=== PATIENT | male | born 1980 | race Caucasian/White ===

== ENCOUNTER 2022-01-09 16:27 | Emergency (ER) | payer SELFPAY ==
[~2022-01-09] VITALS: Ht 157 cm; Wt 68.0 kg
--- NOTE | 2022-01-09 16:38 | ED Psychosocial ---
General Chief Complaint: Psych/Social Disorder Stated Complaint: PSYCH EVAL Source: patient Exam Limitations: no limitations History of Present Illness Date Seen by Provider: Jan 09, 2022 Time Seen by Provider: 16:35 Initial Comments Patient is a 41-year-old male brought to ED by EMS for psych evaluation. Patient states few hours ago he smoked a joint. He is unclear if the joint was laced with some type of chemical or foreign substance. He states he started feeling differently. He states over the past few days he has been having thoughts of wanting to be closer to the [employer]. He is requesting help in evaluation. History of schizophrenia that he currently uses marijuana for. History of methamphetamine use. Denies any alcohol use. Currently homeless. Not asking for inpatient but asking for help and further evaluation at this time . Denies chest pain, Aditya pain, fever, vomiting, suicidal homicidal thoughts, headache, active hallucinations. Allergies and Home Medications Patient Home Medication List Home Medication List Reviewed: Yes Review of Systems Constitutional: No chills, No diaphoresis EENTM: No hearing loss, No ear pain, No blurred vision, No double vision Respiratory: No cough, No dyspnea on exertion Cardiovascular: No chest pain, No edema, No Hx of Intervention Genitourinary: No decreased output, No discharge Musculoskeletal: No see HPI, No back pain Skin: No change in color Psychiatric/Neurological: Denies Anxiety, Denies Depressed All Other Systems Reviewed Negative Unless Noted: Yes Physical Exam Vital Signs - First Documented 01/09/22 16:28 Temp 36.4 Pulse 106 Resp 20 B/P (MAP) 120/75 (90) Pulse Ox 99 O2 Delivery Room Air Capillary Refill : Height, Weight, BMI Height: '" Weight: lbs. oz. kg; BMI Method: General Appearance: WD/WN, no apparent distress HEENT: PERRL/EOMI, normal ENT inspection, TMs normal, pharynx normal Neck: non-tender, full range of motion, supple, normal inspection Respiratory: chest non-tender, lungs clear, normal breath sounds Cardiovascular: regular rate, rhythm, no edema, no gallop, no JVD Gastrointestinal: normal bowel sounds, non tender, soft, no organomegaly Extremities: normal range of motion, non-tender, normal inspection Neurologic/Psychiatric: rodeo clown II-XII nml as tested, no motor/sensory deficits, alert, normal mood/affect, oriented x 3 Behavior/Eye Contact: cooperative, good eye contact, normal speech Thoughts/Hallucinations: No auditory hallucinations, No tactile hallucinations, No visual hallucinations Skin: normal color, warm/dry Progress/Results/Core Measures Results/Orders Lab Results Laboratory Tests Test 01/09/22 16:39 Range/Units White Blood Count 13.3 H 4.3-11.0 10^3/uL Red Blood Count 4.68 4.30-5.52 10^6/uL Hemoglobin 13.6 13.3-17.7 g/dL Hematocrit 41 40-54 % Mean Corpuscular Volume 88 80-99 fL Mean Corpuscular Hemoglobin 29 25-34 pg Mean Corpuscular Hemoglobin Concent 33 32-36 g/dL Red Cell Distribution Width 14.2 10.0-14.5 % Platelet Count 387 130-400 10^3/uL Mean Platelet Volume 9.9 9.0-12.2 fL Immature Granulocyte % (Auto) 0 % Neutrophils (%) (Auto) 80 H 42-75 % Lymphocytes (%) (Auto) 14 12-44 % Monocytes (%) (Auto) 5 0-12 % Eosinophils (%) (Auto) 0 0-10 % Basophils (%) (Auto) 1 0-10 % Neutrophils # (Auto) 10.7 H 1.8-7.8 X 10^3 Lymphocytes # (Auto) 1.9 1.0-4.0 X 10^3 Monocytes # (Auto) 0.6 0.0-1.0 X 10^3 Eosinophils # (Auto) 0.1 0.0-0.3 10^3/uL Basophils # (Auto) 0.1 0.0-0.1 10^3/uL Immature Granulocyte # (Auto) 0.0 0.0-0.1 10^3/uL Sodium Level 140 135-145 MMOL/L Potassium Level 4.3 3.6-5.0 MMOL/L Chloride Level 103 98-107 MMOL/L Carbon Dioxide Level 22 21-32 MMOL/L Anion Gap 15 H 5-14 MMOL/L Blood Urea Nitrogen 21 H 7-18 MG/DL Creatinine 1.15 0.60-1.30 MG/DL Estimat Glomerular Filtration Rate 83 BUN/Creatinine Ratio 18 Glucose Level 97 70-105 MG/DL Calcium Level 9.5 8.5-10.1 MG/DL Corrected Calcium 9.2 8.5-10.1 MG/DL Total Bilirubin 0.6 0.1-1.0 MG/DL Aspartate Amino Transf (AST/SGOT) 30 5-34 U/L Alanine Aminotransferase (ALT/SGPT) 43 0-55 U/L Alkaline Phosphatase 64 40-136 U/L Total Protein 7.2 6.4-8.2 GM/DL Albumin 4.4 3.2-4.5 GM/DL Salicylates Level < 5.0 L 5.0-20.0 MG/DL Acetaminophen Level < 10 L 10-30 UG/ML Serum Alcohol < 10 <10 MG/DL My Orders Orders - NIRAV GRIGSBY Ua Culture If Indicated (01/09/22 16:34) Cbc With Automated Diff (01/09/22 16:34) Comprehensive Metabolic Panel (01/09/22 16:34) Alcohol (01/09/22 16:34) Drug Screen Stat (Urine) (01/09/22 16:34) Acetaminophen (01/09/22 16:34) Salicylate (01/09/22 16:34) Ekg Tracing (01/09/22 16:34) Vital Signs/I&O 01/09/22 16:28 Temp 36.4 Pulse 106 Resp 20 B/P (MAP) 120/75 (90) Pulse Ox 99 O2 Delivery Room Air Comment Sinus tachycardia, 104 bpm, QRS duration 99 MS, QTc 449 MS Departure Communication (PCP) Patient cooperative. Patient was not able to provide urine sample. Concerning for meth and marijuana use. Which he states he has used. patient without hallucinations. Not suicidal or homicidal. Patient was evaluated by Sweetie galvin in the ER from [facility] who recommends outpatient follow- up. Patient was offered outpatient resources. Patient would like to be started on medication and will follow up with provider. Patient has no other complaints. Return precaution were discussed Impression Primary Impression: Encounter for screening examination for mental health and behavioral di sorders Disposition: HOME, SELF-CARE Condition: Stable Departure-Patient Inst. Decision time for Depature: 18:03 [address]errals: [facility] [place] Patient Instructions: Schizoaffective Disorder (DC) NIRAV GRIGSBY Jan 09, 2022 16:38
[2022-01-09 16:51] LABS: BASOPHILS # (AUTO) 0.1 10^3/uL (0.0-0.1); BASOPHILS % (AUTO) 1 % (0-10); EOSINOPHILS # (AUTO) 0.1 10^3/uL (0.0-0.3); EOSINOPHILS % (AUTO) 0 % (0-10); HEMATOCRIT 41 % (40-54); HEMOGLOBIN 13.6 g/dL (13.3-17.7); LYMPHOCYTES # (AUTO) 1.9 X 10^3 (1.0-4.0); LYMPHOCYTES % (AUTO) 14 % (12-44); MEAN CORPUSCULAR HEMOGLOBIN 29 pg (25-34); MEAN CORPUSCULAR HGB CONC 33 g/dL (32-36); MEAN CORPUSCULAR VOLUME 88 fL (80-99); MEAN PLATELET VOLUME 9.9 fL (9.0-12.2); MONOCYTES # (AUTO) 0.6 X 10^3 (0.0-1.0); MONOCYTES % (AUTO) 5 % (0-12); NEUTROPHILS # (AUTO) 10.7 X 10^3 (1.8-7.8); NEUTROPHILS % (AUTO) 80 % (42-75); PLATELET COUNT 387 10^3/uL (130-400); WHITE BLOOD COUNT 13.3 10^3/uL (4.3-11.0)
[2022-01-09 17:01] LABS: ALBUMIN 4.4 GM/DL (3.2-4.5); CHLORIDE 103 MMOL/L (98-107); POTASSIUM 4.3 MMOL/L (3.6-5.0); SODIUM 140 MMOL/L (135-145)
[2022-01-09 17:02] LABS: CALCIUM 9.5 MG/DL (8.5-10.1)
[2022-01-09 17:04] LABS: GLUCOSE 97 MG/DL (70-105); TOTAL PROTEIN 7.2 GM/DL (6.4-8.2)
[2022-01-09 17:05] LABS: BILIRUBIN,TOTAL 0.6 MG/DL (0.1-1.0); CARBON DIOXIDE 22 MMOL/L (21-32)
[2022-01-09 17:07] LABS: ALKALINE PHOSPHATASE 64 U/L (40-136); CREATININE SERUM 1.15 MG/DL (0.60-1.30); GFR ESTIMATED 83
[2022-01-09 17:09] LABS: BUN/CREATININE RATIO 18
[2022-01-09 17:10] LABS: ALANINE AMINOTRANSFERASE 43 U/L (0-55); SALICYLATE < 5.0 MG/DL (5.0-20.0)
[2022-01-09 17:15] LABS: ACETAMINOPHEN < 10 UG/ML (10-30)
[2022-01-09 18:04] VITALS: BP 120/75
[2022-01-09] MEDS ORDERED: QUET25TA PO (18:04)
[2022-01-09] MEDS ORDERED: QUET50TA4 PO (18:08)
== END 2022-01-09 18:04 | disposition home or self-care (01) ==
LOC: ER 16:29
DX: Z13.30 Encounter for screening examination for mental health and behavioral disorders, unspecified (principal)
CPT/HCPCS: 80053; 85025; 93005; 99283; G0480 ×3; 36415; 80320; 80329